=== PATIENT | female | born 1990 | race Caucasian/White ===

== ENCOUNTER 2021-03-09 11:50 | Emergency (ER) | payer OTHER ==
[~2021-03-09] VITALS: Ht 157.5 cm; Wt 68.0 kg
[~2021-03-09 11:50] MED LIST: DOCU-131 PO; IBUP-1222 PO; IRON1TAB60 PO; OXYC1TAB14 PO; PREN-3 PO
[2021-03-09 12:46] LABS: BASOPHILS % (AUTO) 0 % (0-1); EOSINOPHILS % (AUTO) 0 % (1-7); LYMPHOCYTES % (AUTO) 9 % (22-44); MEAN CORPUSCULAR HEMOGLOBIN 29.8 pg (27.0-34.8); MEAN PLATELET VOLUME 8.2 fL (7.4-10.4); MONOCYTES % (AUTO) 9 % (2-9); NEUTROPHILS % (AUTO) 82 % (42-75); PLATELET COUNT 145 x10^3/uL (130-400); RED BLOOD COUNT 4.34 x10^6/uL (3.82-5.3)
[2021-03-09 12:57] LABS: ALBUMIN 3.2 g/dL (3.4-5.0); ANION GAP 7 mmol/L (5-15); CALCIUM 8.6 mg/dL (8.5-10.1); CHLORIDE 104 mmol/L (98-107)
[2021-03-09 13:03] LABS: ALANINE AMINOTRANSFERASE 19 U/L (12-78); ALKALINE PHOSPHATASE 65 U/L (45-117); BILIRUBIN,TOTAL 0.6 mg/dL (0.2-1.0); CREATININE 0.71 mg/dL (0.55-1.02); TOTAL PROTEIN 7.8 g/dL (6.4-8.2)
--- NOTE | 2021-03-09 13:21 | NUR ---
PT AMBULATORY TO ROOM FROM US.
--- NOTE | 2021-03-09 13:28 | NUR ---
CARYN DODGE PA AT BEDSIDE. PT ASSESSMENT POC REVIEWED AND QUESTIONS ANSWERED.
[2021-03-09 13:30] VITALS: BP 105/61
--- NOTE | 2021-03-09 13:32 | NUR ---
URINE RESULTS PENDING. PT VSS, CALL LIGHT W/I REACH
[2021-03-09 13:39] LABS: MICROSCOPIC AUTO
[2021-03-09] MEDS ORDERED: POTASSIUM CHLORIDE 20 MEQ TAB.ER.PRT ONE ×2 (13:39→14:16)
[2021-03-09] MEDS ORDERED: POTASSIUM CHLORIDE 20 MEQ TAB.ER.PRT PO ONE (14:00)
[2021-03-09] MEDS ORDERED: CEFDINIR 300 MG CAPSULE ONE (14:16)
[2021-03-09] MEDS ORDERED: CEFDINIR 300 MG CAPSULE PO ONE (14:30)
== END 2021-03-09 14:39 | disposition home or self-care (01) ==
LOC: ED 14:20
DX: N10 Acute pyelonephritis (principal); R10.11 Right upper quadrant pain; R11.2 Nausea with vomiting, unspecified; E87.6 Hypokalemia
CPT/HCPCS: 36415; 76700; 80053; 81001; 83690; 84703; 85025; 87077; 87086; 87186; 99284